=== PATIENT | male | born 1995 | race Caucasian/White ===

== ENCOUNTER 2023-03-31 14:37 | Emergency (ER) | payer SELFPAY ==
[~2023-03-31] VITALS: Ht 177.8 cm; Wt 86.0 kg
[2023-03-31 14:40] VITALS: TEMP 97.7; O2SAT 97
[2023-03-31] MEDS ORDERED: HYDROCODONE/ACETAMINOPHEN 5/325MG TABLET PO ONE (15:30)
[2023-03-31] MEDS ORDERED: NAPR-1176 MT (17:05)
[2023-03-31] MEDS ORDERED: CYCL10TA21 MT (17:05)
[2023-03-31 17:45] VITALS: BP 168/100; PULSE 77; RESP 20
[2023-03-31] MEDS ORDERED: HYDROCODONE/ACETAMINOPHEN 5/325MG TABLET PO NR (17:45)
== END 2023-03-31 17:50 | disposition home or self-care (01) ==
LOC: ER 14:37
DX: S40.011A Contusion of right shoulder, initial encounter (principal); S10.93XA Contusion of unspecified part of neck, initial encounter; S09.90XA Unspecified injury of head, initial encounter; W18.39XA Other fall on same level, initial encounter; Y93.89 Activity, other specified; Y92.89 Other specified places as the place of occurrence of the external cause; Y99.8 Other external cause status
CPT/HCPCS: 71101; 73030; 99284